=== PATIENT | male | born 1955 | race African-American/Black ===

== ENCOUNTER 2018-09-30 10:59 | Emergency (ER) | payer BC, OTHER ==
[2018-09-30] MEDS ORDERED: ONDANSETRON 4 MG/2 ML VIAL ONE (11:30)
[2018-09-30] MEDS ORDERED: NA CHLORIDE 0.9% 1,000 ML ONE (11:30)
[2018-09-30] MEDS ORDERED: MECLIZINE HCL 12.5 MG TAB ONE (11:30)
[2018-09-30 11:36] LABS: Absolute Lymphocytes (CBC) 1.2 K/uL (0.7-4.9); Absolute Monocytes 0.6 K/uL (0.1-1.3); Absolute Neutrophil 5.6 K/uL (1.8-8.0); Basophils % 1.2 % (0-1.3); Eosinophils % 0.4 % (0-4.4); Hematocrit 38.8 % (39.6-49.0); Lymphocytes % 16.5 % (15.3-44.8); MPV 8.3 fL (7.6-11.3); Monocytes % 7.4 % (3.3-12.3); RBC Red Blood Cell Count 4.66 M/uL (4.33-5.43)
[2018-09-30 11:41] LABS: Protime INR 1.08
--- NOTE | 2018-09-30 11:49 | RAD REPORT ---
EXAM DESCRIPTION: RAD - Chest Single View - 09/30/2018 11:43 am CLINICAL HISTORY: dizziness Chest pain. COMPARISON: Chest Pa And Lat (2 Views) dated 03/08/2017; CHEST SINGLE VIEW dated 03/27/2014; CHEST SIN GLE VIEW dated 08/24/2010 FINDINGS: Portable technique limits examination quality. The lungs are grossly clear. The heart is normal in size. No displaced fractures. IMPRESSION: No acute intrathoracic process suspected.
[2018-09-30 11:56] LABS: ALT/SGPT 19 U/L (12-78); AST/SGOT 14 U/L (15-37); Albumin 3.4 g/dL (3.4-5.0); Alkaline Phosphatase 66 U/L (45-117); BUN Blood Urea Nitrogen 13 mg/dL (7-18); Bicarbonate 30 mmol/L (21-32); Bilirubin Direct < 0.1 mg/dL (0-0.2); Bilirubin Total 0.3 mg/dL (0.2-1.0); Glucose Level 99 mg/dL (74-106); NT PRO-BNP 36 pg/mL (<125); Potassium 3.8 mmol/L (3.5-5.1); Protein, Total 7.1 g/dL (6.4-8.2); Sodium Level 145 mmol/L (136-145); Troponin (Emerg Dept Use Only) < 0.02 ng/mL (0.0-0.045)
--- NOTE | 2018-09-30 12:11 | RAD REPORT ---
EXAM DESCRIPTION: CT - Head Brain Wo Cont - 09/30/2018 11:56 am CLINICAL HISTORY: DIZZINESS Headache, drowsiness COMPARISON: HEAD BRAIN W O CONTRAST dated 02/09/2009 TECHNIQUE: All CT scans are performed using dose optimization technique as appropriate and may inclu de automated exposure control or mA/KV adjustment according to patient size. FINDINGS: No intracranial hemorrhage, hydrocephalus or extra-axial fluid collection.No areas of brai n edema or evidence of midline shift. The paranasal sinuses and mastoids are clear. The calvarium is intact. IMPRESSION: No acute intracranial abnormality.
[2018-09-30] MEDS ORDERED: SCOPOLAMINE HYDROBROMIDE PATCH TD SCH (13:00)
--- NOTE | 2018-09-30 13:42 | ER ---
Nurse's Notes [facility] Name: Baldo Lopez Age: 63 yrs Sex: Male : 1955 Arrival Date: 09/30/2018 Time: 11:06 Bed 20 Private MD: Diagnosis: Dizziness Presentation: 09/30 11:10 Presenting complaint: EMS states: called out for dizziness that started this morning em when waking up at 0900, reports the room is spinning with some nausea, denies vomiting, headache, also reports mild abd pain rates 3/10, denies fever, EMS [id number]. Transition of care: patient was not received from another setting of care. Onset of symptoms was September 30, 2018 at 09:00. Risk Assessment: Do you want to hurt yourself or someone else? Patient reports no desire to harm self or others. Initial Sepsis Screen: Does the patient meet any 2 criteria? No. Patient's initial sepsis screen is negative. Does the patient have a suspected source of infection? No. Patient's initial sepsis screen is negative. Care prior to arrival: None. 11:10 Method Of Arrival: EMS: [facility] em 11:21 Acuity: ORALIA 3 iw Triage Assessment: 11:14 General: Appears in no apparent distress. comfortable, Behavior is calm, cooperative. em Pain: Complains of pain in abdomen. Historical: - Allergies: 11:14 No Known Allergies; em - Home Meds: 11:14 Flomax 0.4 mg Oral cp24 [Active]; lisinopril 20 mg Oral tab [Active]; amlodipine 10 mg em tab [Active]; - PMHx: 11:14 Hypertension; em - PSHx: 11:14 Hernia repair; em - Immunization history:: Flu vaccine is not up to date. - Social history:: Smoking status: Patient uses tobacco products, smokes one-half pack cigarettes per day. - Ebola Screening: : Patient negative for fever greater than or equal to 101.5 degrees Fahrenheit, and additional compatible Ebola Virus Disease symptoms Patient denies exposure to infectious person Patient denies travel to an Ebola-affected area in the 21 days before illness onset No symptoms or risks identified at this time. Screenin:17 Abuse screen: Denies threats or abuse. Nutritional screening: No deficits noted. em Tuberculosis screening: No symptoms or risk factors identified. Fall Risk IV access (20 points). Gait- Impaired (20 pts.). Total Vanessa Fall Scale indicates Low Risk Score (25-44 pts). Side Rails Up X 2 Placed close to Nursing Station Frequent Obs/Assesments occuring Family Present and informed to notify staff if they need to leave bedside. Assessment: 11:15 General: Appears in no apparent distress. comfortable, Behavior is calm, cooperative, em Denies fever. Pain: Complains of pain in abdomen Pain at worst was 3 out of 10 on a pain scale. Neuro: Level of Consciousness is awake, alert, obeys commands, Oriented to person, place, time, situation, Artist Consultant are equal bilaterally Moves all extremities. Gait is steady, Speech is normal, Facial symmetry appears normal, Pupils are PERRLA, Intact Reports dizziness, since 0900 this morning Denies weakness blurred vision difficulty swallowing, headache. Cardiovascular: Capillary refill Patient's skin is warm and dry. Respiratory: Airway is patent Respiratory effort is even, unlabored, Respiratory pattern is regular, symmetrical. GI: Abdomen is flat, Reports nausea, Patient currently denies vomiting. : No signs and/or symptoms were reported regarding the genitourinary system. EENT: No signs and/or symptoms were reported regarding the EENT system. Derm: Skin is intact, is healthy with good turgor, Skin is pink, warm \T\ dry. Musculoskeletal: Range of motion: intact in all extremities. 12:00 Reassessment: Patient appears in no apparent distress at this time. Patient and/or em family updated on plan of care and expected duration. Pain level reassessed. Patient is alert, oriented x 3, equal unlabored respirations, skin warm/dry/pink. 12:44 Reassessment: Patient appears in no apparent distress at this time. Patient and/or em family updated on plan of care and expected duration. Pain level reassessed. Patient is alert, oriented x 3, equal unlabored respirations, skin warm/dry/pink. nausea has improved, dizziness has not. 13:27 Reassessment: Patient appears in no apparent distress at this time. Patient and/or em family updated on plan of care and expected duration. Pain level reassessed. Patient is alert, oriented x 3, equal unlabored respirations, skin warm/dry/pink. pt ambulated to the restroom with steady gait, reports nausea and dizziness has improved. Vital Signs: 11:15 BP 138 / 78; Pulse 76; Resp 16; Temp 97.9(O); Pulse Ox 100% on R/A; Weight 65.77 kg; em Height 5 ft. 8 in. (172.72 cm); Pain 3/10; 12:06 BP 135 / 92; Pulse 72; Resp 18; Pulse Ox 100% on R/A; em 13:22 BP 140 / 82; Pulse 72; Resp 17; Pulse Ox 100% on R/A; em 13:52 BP 142 / 78; Pulse 78; Resp 18; Pulse Ox 99% on R/A; em 11:15 Body Mass Index 22.05 (65.77 kg, 172.72 cm) em ED Course: 11:06 Patient arrived in ED. em 11:10 Dalton Foreman LVN is Primary Nurse. em 11:12 Олег Bueno PA is PHCP. cp 11:12 Олег Araya MD is Attending Physician. cp 11:15 Arm band placed on. em 11:17 Patient has correct armband on for positive identification. Placed in gown. Bed in low em position. Call light in reach. Side rails up X2. Adult w/ patient. metal storage worker on. Pulse ox on. NIBP on. 11:17 Maintain EMS IV. Dressing intact. Good blood return noted. Site clean \T\ dry. Gauge \T\ em site: 20 LAC. 11:21 Triage completed. iw 11:44 XRAY Chest (1 view) In Process Unspecified. EDMS 11:54 CT completed. Patient tolerated procedure well. Patient moved to CT via wheelchair. bq Patient moved back from CT. 11:56 CT Head Brain wo Cont In Process Unspecified. EDMS 13:39 [place] MD is Referral Physician. cp 13:53 No provider procedures requiring assistance completed. IV discontinued, intact, em bleeding controlled, No redness/swelling at site. Pressure dressing applied. Administered Medications: 11:29 Drug: NS 0.9% 1000 ml Route: IV; Rate: 1 bolus; Site: left antecubital; em 12:27 Follow up: IV Status: Completed infusion; IV Intake: 1000ml em 11:32 Drug: Zofran 4 mg Route: IVP; Site: left antecubital; iw 12:45 Follow up: Response: No adverse reaction; Nausea is decreased em 11:50 Drug: Meclizine 25 mg Route: PO; em 13:01 Follow up: Response: No adverse reaction; Marked relief of symptoms em 13:27 Drug: Scopolamine 1.5 mg {Note: placed behind left ear.} Route: Transdermal; Site: em abdomen; 13:50 Follow up: Response: No adverse reaction em Point of Care Testing: Blood Glucose: 11:15 Blood Glucose: 106 mg/dL; em Ranges: Intake: 12:27 IV: 1000ml; Total: 1000ml. em Outcome: 13:41 Discharge ordered by MD. cp 13:53 Discharged to home ambulatory, with family. em 13:53 Condition: good 13:53 Discharge instructions given to patient, family, Instructed on discharge instructions, follow up and referral plans. medication usage, Demonstrated understanding of instructions, follow-up care, medications, Prescriptions given X 2. 14:03 Patient left the ED. em Signatures: Dispatcher [employer] EDDaysi Daniel bq Dalton Foreman, LANDSCAPE CREW LEADER LANDSCAPE CREW LEADER em Yajaira Lozada, MACKENZIE RN Олег Currie, PA PA cp
--- NOTE | 2018-09-30 13:42 | EDPHYS ---
Physician Documentation [facility] Name: Baldo Lopez Age: 63 yrs Sex: Male : 1955 Arrival Date: 09/30/2018 Time: 11:06 Bed 20 Private MD: ED Physician Олег Araya HPI: 09/30 11:20 This 63 yrs old Black Male presents to ER via EMS with complaints of dizziness. cp 11:20 The patient presents with dizziness, sense of spinning. cp 11:20 Onset: The symptoms/episode began/occurred this morning, at 09:00. Context: occurred at home, just prior to the episode the patient experienced no apparent symptoms. Associated signs and symptoms: Pertinent positives: nausea, Pertinent negatives: abdominal pain, chest pain, confusion, diaphoresis, focal weakness, numbness, shortness of breath, vomiting. Severity of symptoms: in the emergency department the symptoms are unchanged despite home interventions. Patient's baseline: Neuro: alert and fully oriented, Motor: no deficits, Ambulation: walks without assistance, Speech: normal. The patient has not experienced similar symptoms in the past. Historical: - Allergies: 11:14 No Known Allergies; em - Home Meds: 11:14 Flomax 0.4 mg Oral cp24 [Active]; lisinopril 20 mg Oral tab [Active]; amlodipine 10 mg em tab [Active]; - PMHx: 11:14 Hypertension; em - PSHx: 11:14 Hernia repair; em - Immunization history:: Flu vaccine is not up to date. - Social history:: Smoking status: Patient uses tobacco products, smokes one-half pack cigarettes per day. - Ebola Screening: : Patient negative for fever greater than or equal to 101.5 degrees Fahrenheit, and additional compatible Ebola Virus Disease symptoms Patient denies exposure to infectious person Patient denies travel to an Ebola-affected area in the 21 days before illness onset No symptoms or risks identified at this time. ROS: 11:25 Constitutional: Negative for body aches, chills, fever, poor PO intake. cp 11:25 Eyes: Negative for injury, pain, redness, and discharge. cp 11:25 ENT: Negative for drainage from ear(s), ear pain, sore throat, difficulty swallowing, difficulty handling secretions. 11:25 Neck: Negative for pain with movement, pain at rest, stiffness, tenderness. 11:25 Cardiovascular: Negative for chest pain, edema, palpitations. 11:25 Respiratory: Negative for cough, shortness of breath, wheezing. 11:25 Abdomen/GI: Positive for nausea, Negative for abdominal pain, vomiting, diarrhea, constipation, black/tarry stool, rectal bleeding. 11:25 Back: Negative for pain at rest, pain with movement. 11:25 : Negative for urinary symptoms. 11:25 Skin: Negative for cellulitis, rash. 11:25 Neuro: Positive for dizziness, headache, general weakness, Negative for altered mental status, hearing loss, numbness, syncope. 11:25 All other systems are negative. Exam: 11:30 Constitutional: The patient appears in no acute distress, alert, awake, cp non-diaphoretic, non-toxic, well developed, well nourished. 11:30 Head/Face: Normocephalic, atraumatic. Eyes: Pupils equal round and reactive to light, cp extra-ocular motions intact. Lids and lashes normal. Conjunctiva and sclera are non-icteric and not injected. Cornea within normal limits. Periorbital areas with no swelling, redness, or edema. ENT: Nares patent. No nasal discharge, no septal abnormalities noted. Tympanic membranes are normal and external auditory canals are clear. Oropharynx with no redness, swelling, or masses, exudates, or evidence of obstruction, uvula midline. Mucous membranes moist. Neck: Trachea midline, no thyromegaly or masses palpated, and no cervical lymphadenopathy. Supple, full range of motion without nuchal rigidity, or vertebral point tenderness. No Meningismus. Chest/axilla: Normal chest wall appearance and motion. Nontender with no deformity. No lesions are appreciated. 11:30 Cardiovascular: Rate: normal, Rhythm: regular, Pulses: Pulses are 2+ in right radial artery and left radial artery. Heart sounds: murmur, not appreciated, Edema: is not appreciated, JVD: is not appreciated. 11:30 Respiratory: the patient does not display signs of respiratory distress, Respirations: normal, no use of accessory muscles, no retractions, no splinting, no tachypnea, labored breathing, is not present, Breath sounds: are clear throughout, no decreased breath sounds, no stridor, no wheezing. 11:30 Abdomen/GI: Inspection: abdomen appears normal, Bowel sounds: active, all quadrants, Palpation: abdomen is soft and non-tender, in all quadrants, rebound tenderness, is not appreciated, voluntary guarding, is not appreciated, involuntary guarding, is not appreciated. 11:30 Back: pain, is absent, ROM is normal. 11:30 Skin: cellulitis, is not appreciated, no rash present. 11:30 Neuro: Orientation: to person, place \T\ time. Mentation: is normal, Cerebellar function: is grossly normal, Motor: moves all fours, strength is normal, Sensation: is normal. 12:00 ECG was reviewed by the Attending Physician. cp Vital Signs: 11:15 BP 138 / 78; Pulse 76; Resp 16; Temp 97.9(O); Pulse Ox 100% on R/A; Weight 65.77 kg; em Height 5 ft. 8 in. (172.72 cm); Pain 3/10; 12:06 BP 135 / 92; Pulse 72; Resp 18; Pulse Ox 100% on R/A; em 13:22 BP 140 / 82; Pulse 72; Resp 17; Pulse Ox 100% on R/A; em 13:52 BP 142 / 78; Pulse 78; Resp 18; Pulse Ox 99% on R/A; em 11:15 Body Mass Index 22.05 (65.77 kg, 172.72 cm) em MDM: 11:12 Patient medically screened. cp 11:30 Differential diagnosis: cardiac arrhythmia, CVA, GI bleed, hypovolemia, idiopathic cp dizziness, TIA, vertigo. 13:40 Data reviewed: vital signs, nurses notes, lab test result(s), EKG, radiologic studies, cp CT scan, plain films, I have discussed the patient's presentation/case with the attending Emergency Department Physician;. 13:40 Test interpretation: by ED physician or midlevel provider: ECG, plain radiologic cp studies. Counseling: I had a detailed discussion with the patient and/or guardian regarding: the historical points, exam findings, and any diagnostic results supporting the discharge/admit diagnosis, the presence of at least one elevated blood pressure reading (>120/80) during this emergency department visit, lab results, radiology results, the need for outpatient follow up, a family practitioner, to return to the emergency department if symptoms worsen or persist or if there are any questions or concerns that arise at home. Response to treatment: the patient's symptoms have markedly improved after treatment, VSS. Patient reports nausea and dizziness markedly improved, and as a result, I will discharge patient. 09/30 11:20 Order name: Basic Metabolic Panel; Complete Time: 11:57 cp 09/30 11:57 Interpretation: Normal except: CL 110. cp 09/30 11:20 Order name: CBC with Diff; Complete Time: 11:57 cp 09/30 11:57 Interpretation: Normal except: HGB 12.7; HCT 38.8; SHANIKA% 74.5. cp 09/30 11:20 Order name: LFT's; Complete Time: 11:57 cp 09/30 11:58 Interpretation: Normal except: AST 14; GLOB 3.7; A/G 0.9. cp 09/30 11:20 Order name: Magnesium; Complete Time: 11:57 cp 09/30 11:20 Order name: NT PRO-BNP; Complete Time: 11:57 cp 09/30 11:20 Order name: PT-INR; Complete Time: 11:57 cp 09/30 11:20 Order name: Troponin (emerg Dept Use Only); Complete Time: 11:57 cp 09/30 11:20 Order name: XRAY Chest (1 view); Complete Time: 11:57 cp 09/30 11:58 Interpretation: Report review. cp 09/30 11:20 Order name: CT Head Brain wo Cont; Complete Time: 12:13 cp 09/30 12:13 Interpretation: Report reviewed. 09/30 12:53 Order name: Glucose, Ancillary Testing EDMS 09/30 11:20 Order name: EKG; Complete Time: 11:21 cp 09/30 11:20 Order name: Cardiac monitoring; Complete Time: 13:39 cp 09/30 11:20 Order name: EKG - Nurse/Tech; Complete Time: 13:39 cp 09/30 11:20 Order name: IV Saline Lock; Complete Time: 11:37 cp 09/30 11:20 Order name: Labs collected and sent; Complete Time: 11:37 cp 09/30 11:20 Order name: O2 Per Protocol; Complete Time: 11:36 cp 09/30 11:20 Order name: O2 Sat Monitoring; Complete Time: 11:36 cp EC:00 Rate is 77 beats/min. Rhythm is regular. CT interval is normal. QRS interval is normal. cp QT interval is normal. Interpreted by me. Reviewed by me. Administered Medications: 11:29 Drug: NS 0.9% 1000 ml Route: IV; Rate: 1 bolus; Site: left antecubital; em 12:27 Follow up: IV Status: Completed infusion; IV Intake: 1000ml em 11:32 Drug: Zofran 4 mg Route: IVP; Site: left antecubital; iw 12:45 Follow up: Response: No adverse reaction; Nausea is decreased em 11:50 Drug: Meclizine 25 mg Route: PO; em 13:01 Follow up: Response: No adverse reaction; Marked relief of symptoms em 13:27 Drug: Scopolamine 1.5 mg {Note: placed behind left ear.} Route: Transdermal; Site: em abdomen; 13:50 Follow up: Response: No adverse reaction em Point of Care Testing: Blood Glucose: 11:15 Blood Glucose: 106 mg/dL; em Ranges: Critical Glucose Levels:Adult <50 mg/dl or >400 mg/dl <40 mg/dl or >180 mg/dl Disposition: 10/01 09:16 Co-signature as Attending Physician, Олег Araya MD I agree with the assessment and [place] plan of care. Disposition: 09/30/18 13:41 Discharged to Home. Impression: Dizziness. - Condition is Stable. - Discharge Instructions: Dizziness. - Prescriptions for Meclizine 25 mg Oral Tablet - take 1 tablet by ORAL route every 8 hours As needed; 30 tablet. Zofran 4 mg Oral Tablet - take 1 tablet by ORAL route every 12 hours As needed; 20 tablet. - Medication Reconciliation Form, Thank You Letter, Antibiotic Education, Prescription Opioid Use form. - Follow up: [place] MD; When: 1 - 2 days; Reason: Recheck today's complaints. - Problem is new. - Symptoms have improved. Signatures: Dispatcher [employer] Олег Fonseca MD MD cha Munoz, Edgar, FLIGHT PHYSICIAN FLIGHT PHYSICIAN em Yajaira Lozada RN RN iw Олег Bueno PA PA cp Corrections: (The following items were deleted from the chart) 09/30 14:03 13:41 09/30/2018 13:41 Discharged to Home. Impression: Dizziness. Condition is Stable. em Forms are Medication Reconciliation Form, Thank You Letter, Antibiotic Education, Prescription Opioid Use. Follow up: [place]; When: 1 - 2 days; Reason: Recheck today's complaints. Problem is new. Symptoms have improved. cp
--- NOTE | 2018-10-01 07:24 | EKG ---
Test Date: 2018-09-30 Test Time: 11:40:31 Tank Hoop Bender: BABAK MEASUREMENT RESULTS: Intervals: Rate: 77 MO: 162 QRSD: 92 QT: 390 QTc: 441 [place]: P: 67 MO: 162 QRS: 53 T: 56 INTERPRETIVE STATEMENTS: Normal sinus rhythm Moderate voltage criteria for LVH, may be normal variant Borderline ECG Compared to ECG 08/25/2010 03:51:17 Sinus bradycardia no longer present ST (T wave) deviation no longer present Electronically Signed On 10-01-18 07:21:12 BLAST FURNACE CHECKER by Jose A Torres
== END 2018-09-30 14:03 | disposition home or self-care (01) ==
LOC: ER 10:59
DX: R42 Dizziness and giddiness (principal); I10 Essential (primary) hypertension; F17.210 Nicotine dependence, cigarettes, uncomplicated; Z79.899 Other long term (current) drug therapy
CPT/HCPCS: 36415; 70450; 71045; 80048; 80076; 82962; 83735; 83880; 84484; 85025; 85610; 93005; 96361; 96374; 99285; J2405; J7030